=== PATIENT | female | born 1980 | race Caucasian/White ===

== ENCOUNTER → 2017-07-21 | Outpatient (CLI) | payer BC ==
[~2017-07-21] MED LIST: AFRI0.052 EACH NARE; ASCO100029 PO; AZEL137S EACH NARE; BUPR150XL PO; CLON1 PO; MONT10TA2 PO; PHEN10TA PO; PREN1MIS10 PO; SERO50TA PO; TYLE325T PO
--- NOTE | 2017-07-22 12:50 | EKG ---
Date Performed: 07/21/2017 Time Performed: 12:10:00 PTAGE: 36 years EKG: Sinus rhythm . rSr'(V1) - probable normal variant Poor R wave progression - probable normal variant Septal T wave changes are nonspecific Borderline ECG NO PREVIOUS TRACING DOCTOR: Lenny Villarreal Interpretating Date/Time 07/22/2017 12:49:16
== END ==
LOC: CPRE 11:22
PROVIDERS: ATTEND Obstetrics & Gynecology
DX: Z01.810 Encounter for preprocedural cardiovascular examination (principal); N92.0 Excessive and frequent menstruation with regular cycle; N94.6 Dysmenorrhea, unspecified; R10.2 Pelvic and perineal pain; N83.202 Unspecified ovarian cyst, left side
CPT/HCPCS: 93005

== ENCOUNTER → 2017-07-31 | Day surgery (SDC) | payer BC ==
--- NOTE | 2017-07-30 09:24 | MH ---
cc: DONAL MORALES M.D. DATE OF ADMISSION 07/31/2017 DATE OF 1980 ADMISSION DIAGNOSIS Dysmenorrhea, pelvic pain, intermittent menorrhagia. HISTORY OF PRESENT ILLNESS The patient is a 36-year-old single white female para 0 with a history of pelvic discomfort, some intermittent increased flow and some dysmenorrhea. Her cycles have been more irregular over the last one year and often will be fluctuating in amount. PAST MEDICAL HISTORY Previous surgery: T&A in childhood MEDICATIONS 1. Wellbutrin 2. Seroquel 3. Klonopin ALLERGIES None TRANSFUSIONS None OBSTETRICAL HISTORY None SOCIAL HISTORY She is a teacher. Single. Alcohol occasional. Tobacco none. Drugs none. FAMILY HISTORY Noncontributory PHYSICAL EXAM This is a well-nourished well-developed white female. VITAL SIGNS: Stable. HEENT: Exam is normal. CHEST: Clear. HEART: Regular rate. BREASTS: The breasts are symmetrical. ABDOMEN: The abdomen is benign. PELVIC: Normal external genitalia and BUS. Vagina is normal. Cervix normal. Uterus is normal size and shape. Adnexa nonpalpable. ASSESSMENT As above. PLAN She is now admitted for a hysteroscopy, D&C, and laparoscopy. While in the office, I explained the procedures, the risks, benefits and complications including infection, injury, bleeding and possible need for surgery pending findings. The patient would like to proceed. Her most recent pelvic ultrasound from 07/24/2017 revealed a uterus that measured 7.7 cm with some small cysts consistent with adenomyosis and a right ovary showed a simple cyst. The left was normal. MD CANDI Velazquez/AMANDA /8:52 AM /9:02 AM
[~2017-07-31] VITALS: Ht 177.8 cm; Wt 84.0 kg
[~2017-07-31] MED LIST changes: +*MEPERIDINE 25 MG INJ VIAL PERIprocedural Use ONLY ONE; +*morphine SULFATE 4 MG/ML PERIprocedure ONLY ONE; +ACETAMINOPHEN 1000 MG/100 ML 100 ML IV SCH; +APREPITANT 40 MG CAP ONE; +BUPIVACAINE/EPINEPHRINE 0.5% 50 ML VIAL ONE; +CHLORHEXIDINE GLUCONATE 2 % 1 PACK (2 CLOTHS) TOPICAL PRN; +DO NOT ADM ANY ANTICOAGULANT DRUGS PRN; +GLYCOPYRROLATE 1 MG/5 ML SYRINGE IV PUSH ONE; +KETOROLAC TROMETHAMINE 30 MG/ML (IVP) VIAL IV PUSH ONE; +LACT1CAP19; +LACTATED RINGER'S 1000 ML IV PRN; +LIDOCAINE HCL 1% PF 5 ML SYRINGE OTHER ONE; +METHYLENE BLUE 10 MG/ML VIAL OTHER ONE; +METOCLOPRAMIDE HCL 10 MG/2 ML VIAL IV PRN; +MIDAZOLAM HCL 2 MG/2 ML VIAL ONE; +NEOSTIGMINE 5 MG/5 ML SYRINGE IV PUSH ONE; +ONDANSETRON HCL 4 MG/2 ML VIAL IV PUSH ONE; +POVIDONE IODINE 5% (ANTISEPSIS KIT) 4 APPLICATIONS EACH NARE PRN; +PROPOFOL 200 MG/20 ML AMP IV ONE; +ROCURONIUM INJ 50 MG/5 ML SYRINGE IV PUSH ONE; +SODIUM CHLORID 0.9% 500 ML IV PRN; +ceFAZolin 1,000 MG/NS 100 ML IV SCH; +oxyCODONE/ACETAMINOPHEN 5 MG/325 MG TAB PO PRN
[2017-07-31 10:34] VITALS: BP 115/53; PULSE 62; RESP 16; TEMP 98.3; O2SAT 100
--- NOTE | 2017-07-31 21:57 | MP ---
cc: CARMENDONAL DATE OF SURGERY 07/31/2017 PREOPERATIVE DIAGNOSIS Menorrhagia, dysmenorrhea with uterine fibroids. POSTOPERATIVE DIAGNOSIS Menorrhagia, dysmenorrhea with uterine fibroids. PROCEDURE Hysteroscopy D&C, laparoscopy with chromo tubation methylene blue. ANESTHESIA General ET - Dr. Steele, anesthesiologist SURGEON Ginny Yung MD AUTOMOTIVE DIAGNOSTIC TECHNICIAN Damian Devries ESTIMATED BLOOD LOSS Less than 20 mL FLUIDS Half liter crystalloid. OBJECTIVE FINDINGS Following induction of adequate general endotracheal anesthesia, the patient was prepped and draped supine on the operating table dorsolithotomy position usual sterile fashion with the bladder being drained via catheterization. Examination under anesthesia revealed a normal size shape anterior uterus. Heavy weighted speculum was placed in vagina. Anterior lip of the cervix grasped with single tooth tenaculum. The cervix and uterus sounded to 8 cm with the soft os finder and dilated to #18 Hanks dilator. Hysteroscope was passed with normal cervix, normal endometrial cavity. The scope was withdrawn. Endocervical obtained with a small serrated curette, endometrium with a small sharp curette, polyp forceps passed tissue and debris. HUMI was placed. The cervical tenaculum site sutured with 3-0 chromic and the other removed. Multisensor Intelligence Officer's gloves were changed. The abdomen was to a 1/2 cm umbilical incision. A five port was placed laparoscope, ____ Cam. A second five port placed left lower quadrant. Pelvic contents revealed a normal uterus with a small anterior fibroid 1 cm. She had an ovulatory cyst on the right ovary. Both cul-de-sacs were clear. Liver edge was normal. Appendix was normal. Methylene blue was now injected through the HUMI and readily spill on the right. The left appeared to be in spasm but otherwise normal. The procedure was then terminated. The scope was removed, gas allowed to escape. Each wound injected with 5 mL of Marcaine 0.5 with epinephrine and closed with 3-0 Monocryl subcuticular and Dermabond. HUMI removed from the vagina. The patient taken out of stirrups and she was awake and taken to the recovery room in good condition. MD ANDREA Velazquez /8:20 AM /9:39 PM
== END | disposition home or self-care (01) ==
LOC: HSDC 05:39 → EDUNIT# 07:30
PROVIDERS: ATTEND Obstetrics & Gynecology
DX: N92.0 Excessive and frequent menstruation with regular cycle (principal); N94.6 Dysmenorrhea, unspecified; D25.9 Leiomyoma of uterus, unspecified
CPT/HCPCS: 00840; 00952; 49320; 58350; 58558; 88305; J0131; J0690; J1885; J2175; J2250; J2270; J2405; J2710; J2765; J3010; J7120; J8501